=== PATIENT | female | born 1995 | race Caucasian/White ===

== ENCOUNTER 2021-08-07 08:00 | Outpatient (CLI) | payer OTHER | END 2021-08-07 23:59 | disposition home or self-care (01) | LOC: LAB.N 08:00 | PROVIDERS: ATTEND Registered Nurse | DX: R30.0 Dysuria (principal) | CPT/HCPCS: 87086 ==

== ENCOUNTER 2021-10-15 08:00 | Outpatient (CLI) | payer OTHER ==
[2021-10-15 18:45] LABS: FOLLICLE STIMULATING HORMONE 5.2 mIU/mL
[2021-10-15 18:46] LABS: LUTEINIZING HORMONE 6.72 mIU/mL
== END 2021-10-15 23:59 | disposition home or self-care (01) ==
LOC: LAB.N 08:00
PROVIDERS: ATTEND Registered Nurse
DX: N91.2 Amenorrhea, unspecified (principal)
CPT/HCPCS: 36415; 82670; 83001; 83002; 84702